=== PATIENT | female | born 1980 | race Two or more races ===

== ENCOUNTER 2024-01-16 04:08 | Day surgery (SDC) | payer OTHER ==
[2024-01-12 09:49] VITALS: BMI 28.3
[2024-01-16] MEDS ORDERED: ONDANSETRON 4 MG/2 ML VIAL ONE (07:00)
[2024-01-16] MEDS ORDERED: LIDOCAINE HCL/PF 2% SDV 5ML VIAL ONE (07:00)
[2024-01-16] MEDS ORDERED: PROPOFOL 40 ML ONE (07:00)
[2024-01-16] MEDS ORDERED: MIDAZOLAM HCL 2 MG/2 ML SINGLE DOSE VIAL ONE (07:00)
[2024-01-16] MEDS ORDERED: DEXAMETHASONE SOD PHOSPHATE 4 MG/1 ML VIAL ONE (07:00)
[2024-01-16] MEDS ORDERED: ONDANSETRON 4 MG/2 ML VIAL IVPUSH PRN ×2 (07:13→07:46)
[2024-01-16] MEDS ORDERED: LACTATED RINGERS SOLUTION 1,000 ML IV SCH (07:15)
[2024-01-16] MEDS ORDERED: IBUPROFEN 800 MG/8 ML IJ IVPB PRN (07:46)
[2024-01-16] MEDS ORDERED: oxyCODONE HCL 5 MG TABLET PO PRN (07:46)
[2024-01-16] MEDS ORDERED: IBUPROFEN 600 MG TABLET (FP) PO PRN (07:46)
[2024-01-16] MEDS ORDERED: ELECTROLYTE-148 SOLN 1,000 ML IV SCH (08:00)
[2024-01-16] MEDS ORDERED: KETOROLAC TROMETHAMINE 30 MG/1 ML VIAL ONE (08:29)
[2024-01-16] MEDS: oxyCODONE HCL 5 MG TABLET PO PRN ×2 (10:31→11:35)
[2024-01-16] MEDS ORDERED: oxyCODONE HCL 10 MG SUSTAINED ACTING TABLET ONE (10:33)
[2024-01-16] MEDS ORDERED: oxyCODONE HCL 5 MG TABLET ONE (11:29)
[2024-01-16 13:54] VITALS: TEMP 97.8
[2024-01-16 13:57] VITALS: BP 130/71; PULSE 70; RESP 18
== END 2024-01-16 11:00 | disposition home or self-care (01) ==
LOC: JASU-SURG 04:08
PROVIDERS: ATTEND Obstetrics & Gynecology
PROC: 0U5B8ZZ Destruction of Endometrium, Via Natural or Artificial Opening Endoscopic (ICD-10-PCS; principal; 2024-01-16 07:30)
DX: N93.9 Abnormal uterine and vaginal bleeding, unspecified (principal); D25.9 Leiomyoma of uterus, unspecified
CPT/HCPCS: 81025; 94760